=== PATIENT | female | born 1950 | race Caucasian/White ===

== ENCOUNTER 2019-05-11 11:15 | Day surgery (SDC) | payer MEDICARE ==
[~2019-05-11] VITALS: Ht 162.6 cm; Wt 42.9 kg
[~2019-05-11 11:15] MED LIST: ACET500; CALCIUM CIT 311 EACH PO; Folic Acid-Vit1 EACH PO; GABA300 PO; OMEGA 3 500 SO1 EACH PO; Oxybutynin Chlo15 MG PO; Pantoprazole So20 MG PO; Prinivil10 MG PO; Trazodone HCl300 MG PO
--- NOTE | 2019-05-11 16:21 | NUR ---
05/11/19 1621 EmilSandra N 1532: PT INTO STEP DOWN. RECEIVED REPORT FROM [facility] [place]. PT C/O 7/10 ABDOMINAL PAIN & NAUSEA. DR MARADIAGA AT BEDSIDE. DR MARADIAGA ORDERS PAIN MEDICATION. SEE VITALS FOR DOSING AND TIMES. PER DR MARADIAGA 4MG IV ZOFRAN GIVEN BEFORE PAIN MEDICATION ADMINISTRATION. EKG ALSO ORDERED AT THIS TIME FOR INCREASED HR DURING PROCEDURE. EKG COMPLETE. DR MARADIAGA STATES EKG LOOKS FINE. DR. FRANKLIN NOTIFIED OF THIS ALSO, NO ORDERS FROM DR. FRANKLIN. AFTER FIRST DOSE OF PAIN MEDICATION PT STATES PAIN HAS DECREASED TO 6/10. 2ND DOSE OF PAIN MEDICATION (SEE VITALS FOR DOSING AND TIMES) GIVEN. AT REASSESSMENT OF THIS DOSE PT STATES HER PAIN HAS DECREASED TO 4/10. PT STATES THIS IS A TOLERABLE LEVEL OF PAIN. PT ALSO STATES NAUSEA HAS IMPROVED. PER DR MARADIAGA & DR FRANKLIN OK FOR PT TO HAVE ORAL INTAKE. PT SIPPING ON APPLE JUICE, DAUGHTER AT BEDSIDE. PER DR MARADIAGA & DR. FRANKLIN PT IS OK FOR DISCHARGE. PT & DAUGHTER STATE THEY WANT TO DISCHARGE SO THEY CAN EAT. ADVISED TO START WITH SOMETHING LIGHT. PT STATES AN UNDERSTANDING.
--- NOTE | 2019-05-11 17:15 | NUR ---
05/11/19 1715 Soila Palmer LATE ENTRY 1517 PT. [address] MARADIAGA ASKING PT. IF SHE HAS ANY PAIN. PT. STATES "UNCOMFORTABLE" RATING A "6". PT. POINTING TO HER LEFT SIDE CHEST/ABD. AREA. [address] PT[address] HER BACK[address] MARADIAGA AGAIN ASKING PT. HOW HER PAIN IS & WHERE IS IT AT. PT. POINTS TO HER LOWER ABD. RATING A "7". DR. FRANKLIN ALSO ASKING PT. ABOUT HER PAIN. PT. VERBALIZES PAIN IS DIFFERENT THAN WHEN SHE CAME IN. PT. DURING PROCEDURE HAD GONE INTO A FAST HEART RHYTHM & RATE, SEE ANESTHESIOLOGIST NOTES. 12-LEAD TO BE OBTAINED IN SD. PT. TAKEN TO SD & REPORT GIVEN TO [facility]. DR. MARADIAGA IN ROOM WITH [facility]
== END 2019-05-11 16:27 | disposition home or self-care (01) ==
LOC: ORSCSDS 11:15
PROVIDERS: Internal Medicine Gastroenterology
PROC: 0DBL8ZX Excision of Transverse Colon, Via Natural or Artificial Opening Endoscopic, Diagnostic (ICD-10-PCS; principal; 2019-05-11 13:30)
PROC: 0DB68ZX Excision of Stomach, Via Natural or Artificial Opening Endoscopic, Diagnostic (ICD-10-PCS; principal; 2019-05-11 13:30)
PROC: 0DBK8ZX Excision of Ascending Colon, Via Natural or Artificial Opening Endoscopic, Diagnostic (ICD-10-PCS; principal; 2019-05-11 13:30)
PROC: 0DB58ZX Excision of Esophagus, Via Natural or Artificial Opening Endoscopic, Diagnostic (ICD-10-PCS; principal; 2019-05-11 13:30)
DX: R19.4 Change in bowel habit (principal); K21.0 Gastro-esophageal reflux disease with esophagitis; R10.9 Unspecified abdominal pain; D12.2 Benign neoplasm of ascending colon; D12.3 Benign neoplasm of transverse colon; K57.30 Diverticulosis of large intestine without perforation or abscess without bleeding; K64.1 Second degree hemorrhoids; I10 Essential (primary) hypertension; M79.7 Fibromyalgia; Z86.73 Personal history of transient ischemic attack (TIA), and cerebral infarction without residual deficits; E66.01 Morbid (severe) obesity due to excess calories; Z68.41 Body mass index [BMI] 40.0-44.9, adult; Z79.899 Other long term (current) drug therapy
CPT/HCPCS: 88305; 88342; 93005; 93010; J2250; J2405; J2704; J3010; J7120